=== PATIENT | female | born 1955 | race Caucasian/White ===

== ENCOUNTER 2022-04-01 09:05 | Emergency (ER) | payer MEDICARE, OTHER ==
[2022-04-01] MEDS ORDERED: Sodium Chloride 0.9% 1,000 ML IV ONE (09:24)
[2022-04-01 10:39] LABS: ESTIMATED GFR 95 mL/min (>60)
[2022-04-01 10:44] LABS: ACETAMINOPHEN 0 ug/mL (10-30)
[2022-04-01] MEDS ORDERED: Magnesium Oxide 400 MG Tab PO ONE (10:55)
[2022-04-01 11:51] LABS: CORONAVIRUS COVID-19 NAA NEGATIVE (NEGATIVE)
[2022-04-01] MEDS ORDERED: Magnesium Sulfate/Water 0 ML ONE (15:45)
== END 2022-04-01 19:57 ==
LOC: JD.ED 09:05
DX: I45.81 Long QT syndrome (principal); G93.40 Encephalopathy, unspecified; F31.9 Bipolar disorder, unspecified; F06.1 Catatonic disorder due to known physiological condition; Z88.8 Allergy status to other drugs, medicaments and biological substances; Z20.822 Contact with and (suspected) exposure to COVID-19
CPT/HCPCS: 0240U; 36415; 70450; 71045; 80053; 80143; 80179; 80306; 80307; 81003; 83605; 83690; 83735; 84439; 84443; 84484; 85025; 93005; 96360; 96361; 99285; A9270; J7030